=== PATIENT | female | born 1970 | race Caucasian/White ===

== ENCOUNTER → 2018-11-21 16:36 | Outpatient (CLI) | payer OTHER, SELFPAY ==
--- NOTE | 2018-11-21 | DI.RAD.S_ITS ---
PROCEDURE: XR LUMBAR SPINE MIN 4V INDICATIONS: Spondy lower lumbar TECHNIQUE: 5 views of the lumbar spine acquired. COMPARISON: None. FINDINGS: Bones: No fracture or focal osseous destruction. Mild levocurvature centered at L3. Grade 1 anterolisthesis of L4 on L5 Multilevel degenerative endplate sclerosis and spurring. Diffuse facet arthropathy. No evidence of abnormal motion with dynamic flexion and extension lateral views. Mild narrowing of the L4-L5 and L5-S1 disc spaces. Soft tissues: Overlying bowel gas pattern is normal. No suspicious soft tissue calcifications. IMPRESSION: Grade 1 anterolisthesis of L4 on L5. No evidence of abnormal motion with dynamic flexion and extension lateral views. Mild levocurvature. Mild L4-L5 and L5-S1 spondylosis. Dictated by: Chan Mcadams M.D. on 11/21/2018 at 17:15 Approved by: Chan Mcadams M.D. on 11/21/2018 at 17:16
== END ==
PROVIDERS: PCP Family Medicine; Visit Provider Chiropractor
DX: M43.16 Spondylolisthesis, lumbar region (principal); M47.816 Spondylosis without myelopathy or radiculopathy, lumbar region; M47.817 Spondylosis without myelopathy or radiculopathy, lumbosacral region
CPT/HCPCS: 72110

== ENCOUNTER → 2020-03-19 11:40 | Outpatient (CLI) | payer OTHER, SELFPAY ==
--- NOTE | 2020-03-19 | DI.MRI.S_ITS ---
PROCEDURE: MR LUMBAR SPINE WO CON INDICATIONS: Dorsalgia, unspecified TECHNIQUE: Noncontrast sagittal T1 spin echo and T2 fast echo, sagittal STIR, axial T1 and T2 fast spin echo through the lumbar spine. In cases with scoliosis, additional coronal T2 fast spin echo may be performed. COMPARISON: [facility], CR, XR LUMBAR SPINE MIN 4V, 11/21/2018, 16:48. FINDINGS: Image quality: Excellent. Alignment and Curvature: There is grade 1 anterolisthesis of L4 on L5, trace retrolisthesis of L3 on L4. Bone Marrow: Marrow is of normal overall signal. No acute vertebral body compression fractures. Spinal Cord: Conus medullaris terminates at the L1-L2 level. Visualized cord demonstrates normal signal and size. Paraspinous Soft Tissues: No paravertebral masses. Discs: Moderate to severe desiccation is present L4-5, L5-S1, mild to moderate throughout the remainder of the lumbar spine. L1-L2: Minimal disc bulge without spinal stenosis or foraminal narrowing. Mild epidural lipomatosis is present. Facet and ligamentum flavum hypertrophy are present. L2-L3: Minimal disc bulge without spinal stenosis. Minimal left foraminal narrowing. Mild epidural lipomatosis. L3-L4: Mild disc bulge with mild spinal stenosis. Minimal to mild right foraminal narrowing with facet and ligamentum flavum hypertrophy. Mild epidural lipomatosis. L4-L5: Mild disc bulge with severe spinal stenosis and canal compression. There is an anterior right facet joint cyst measuring 6 mm which is not in contact with the exiting nerve root. Severe bilateral, right greater than left foraminal narrowing with slight nerve root flattening of the exiting L4 nerve roots on the right. Prominent facet and ligamentum flavum hypertrophy are present. L5-S1: Mild disc bulge with increased T2 signal posteriorly suggestive of annular fissure. Minimal right foraminal narrowing with facet hypertrophy. IMPRESSION: 1. Multilevel spinal stenosis severe at L4-5 secondary to disc bulge with contributing effect of facet/ligamentum flavum arthropathy as well as epidural lipomatosis. 2. Multilevel foraminal narrowing most severe at L4-5 secondary to facet/ligamentum flavum arthropathy and anterolisthesis. Dictated by: Carolina Garcia M.D. on 03/21/2020 at 9:18 Approved by: Carolina Garcia M.D. on 03/21/2020 at 11:45
== END ==
PROVIDERS: PCP Family Medicine; Referring Provider Family Medicine; Visit Provider Family Medicine
DX: M54.9 Dorsalgia, unspecified (principal); M48.061 Spinal stenosis, lumbar region without neurogenic claudication; M47.816 Spondylosis without myelopathy or radiculopathy, lumbar region; M51.26 Other intervertebral disc displacement, lumbar region; M43.16 Spondylolisthesis, lumbar region; E88.2 Lipomatosis, not elsewhere classified
CPT/HCPCS: 72148

== ENCOUNTER → 2021-02-16 11:44 | Outpatient (CLI) | payer OTHER, SELFPAY | PROVIDERS: PCP Physician Assistant; Referring Provider Internal Medicine; Visit Provider Internal Medicine | DX: Z23 Encounter for immunization (principal) | CPT/HCPCS: 90471; 90686 ==

== ENCOUNTER → 2021-06-08 09:08 | Outpatient (CLI) | payer OTHER, SELFPAY ==
[2021-06-08 18:29] LABS: Add Manual Diff / Slide Review NO; Basophils Absolute Auto 0 /uL (0-100); Eosinophils Absolute Auto 200 /uL (0-450); Eosinophils Percent Auto 4.5 % (2-4); Hematocrit 41.1 % (36-46); Hemoglobin 14.2 g/dL (12.0-16.0); Lymphocytes Absolute Auto 2100 /uL (1100-4500); Lymphocytes Percent Auto 49.6 % (25-40); Mean Corpuscular HGB Conc 34.4 % (30-36); Mean Corpuscular Hemoglobin 32.6 PG (26-34); Mean Corpuscular Volume 94.7 fL (80-100); Monocytes Absolute Auto 300 /uL (0-900); Monocytes Percent Auto 6.4 % (3-14); Neutrophils Absolute Auto 1700 /uL (1500-7000); Neutrophils Percent Auto 38.5 % (50-75); Platelet Count 218 X10^3/uL (150-400); Red Blood Cell Count 4.34 X10^6/uL (4.0-5.2); Red Cell Distribution Width 13.2 % (11.6-14.8); White Blood Cell Count 4.3 X10^3/uL (4.5-11.0)
[2021-06-08 18:35] LABS: Alanine Aminotransferase 28 IU/L (<35); Albumin 4.6 g/dL (3.5-5.0); Albumin Globulin Ratio 1.4 (1.0-2.8); Alkaline Phosphatase 42 U/L (38-126); Aspartate Aminotransferase 34 IU/L (14-36); BUN Creatinine Ratio 12.1 (6-22); Bilirubin Total 0.5 mg/dL (0.2-1.3); Blood Urea Nitrogen 12 mg/dL (7-17); Calcium 9.5 mg/dL (8.4-10.2); Carbon Dioxide 27 mmol/L (22-32); Chloride 108 mmol/L (98-107); Cholesterol 280 mg/dL (140-199); Estimated Glomerular Filt Rate 59.4 mL/min (>60); Globulin 3.3 g/dL (1.7-4.1); Glucose 93 mg/dL (70-100); HDL Cholesterol 90 mg/dL (40-60); HEMOLYSIS < 15 (0-50); LDL Cholesterol Calculated 170 mg/dL (<100); Potassium 4.5 mmol/L (3.4-5.1); Sodium 140 mmol/L (137-145); Total Protein 7.9 g/dL (6.3-8.2); Triglycerides 102 mg/dL (35-150)
[2021-06-08 19:08] LABS: TSH w/ Reflex to FT4 2.34 uIU/mL (0.47-4.68)
[2021-06-08 20:30] LABS: Vitamin D 25 Hydroxy (D3) 39.9 ng/mL (30.0-100.0)
== END ==
PROVIDERS: Obstetrics & Gynecology; PCP Physician Assistant; Visit Provider Physician Assistant Medical
DX: D64.9 Anemia, unspecified (principal); E78.5 Hyperlipidemia, unspecified; R79.89 Other specified abnormal findings of blood chemistry; E55.9 Vitamin D deficiency, unspecified
CPT/HCPCS: 80053; 80061; 82306; 84443; 85025

== ENCOUNTER → 2022-02-05 17:08 | Outpatient (CLI) | payer OTHER, SELFPAY | PROVIDERS: PCP Physician Assistant; Referring Provider Internal Medicine; Visit Provider Internal Medicine | DX: Z23 Encounter for immunization (principal) | CPT/HCPCS: 90471; 90686 ==

== ENCOUNTER → 2022-03-30 07:45 | Outpatient (CLI) | payer OTHER, SELFPAY ==
--- NOTE | 2022-03-30 07:47 | DI.MG.S_ITS ---
BILATERAL DIGITAL SCREENING MAMMOGRAM 3D/2D WITH CAD: 03/30/2022 CLINICAL: Routine screening. Baseline exam. No prior exams were available for comparison. There are scattered areas of fibroglandular density in both breasts (category b / 25%-50% glandular tissue). Current study was also evaluated with a Computer Aided Detection (CAD) system. No significant masses, calcifications, or other findings are seen in either breast. IMPRESSION: NEGATIVE There is no mammographic evidence of malignancy. A 1 year screening mammogram is recommended. Based on the Tyrer Cuzick model (a risk assessment model) the patient's lifetime risk is 6.3% and her 10 year risk is 1.5%. According to the ACR, ACS, and NCCN guidelines, an annual breast MRI exam along with mammogram is recommended if the patient's lifetime risk is 20% or greater. This exam was interpreted at Station ID: [id number]. NOTE: For mammograms, a report in lay terms will be sent to the patient. Approximately 15% of breast malignancies will not be visualized mammographically. In the management of a palpable breast mass, a negative mammogram must not discourage biopsy of a clinically suspicious lesion. Electronically Signed By: Ewelina horta/mich:03/30/2022 13:11:09 letter sent: Normal Exam ACR BI-RADS Category 1: Negative [id number]
== END ==
PROVIDERS: PCP Physician Assistant; Referring Provider Physician Assistant; Visit Provider Physician Assistant
DX: Z12.31 Encounter for screening mammogram for malignant neoplasm of breast; Z13.820 Encounter for screening for osteoporosis; Z78.0 Asymptomatic menopausal state; M85.851 Other specified disorders of bone density and structure, right thigh; E55.9 Vitamin D deficiency, unspecified; M43.10 Spondylolisthesis, site unspecified
CPT/HCPCS: 77063; 77067; 77080

== ENCOUNTER → 2022-05-18 11:29 | Outpatient (CLI) | payer OTHER, SELFPAY | PROVIDERS: PCP Physician Assistant; Visit Provider Physician Assistant Medical | DX: N30.01 Acute cystitis with hematuria (principal); R11.10 Vomiting, unspecified | CPT/HCPCS: 87086 ==

== ENCOUNTER → 2022-05-21 08:26 | Outpatient (CLI) | payer OTHER, SELFPAY ==
[2022-05-21 19:17] LABS: Add Manual Diff / Slide Review NO; Basophils Absolute Auto 100 /uL (0-100); Basophils Percent Auto 1.2 % (0-2); Eosinophils Absolute Auto 200 /uL (0-450); Eosinophils Percent Auto 3.4 % (2-4); Hematocrit 41.2 % (36-46); Hemoglobin 14.2 g/dL (12.0-16.0); Lymphocytes Absolute Auto 2000 /uL (1100-4500); Lymphocytes Percent Auto 43.5 % (25-40); Mean Corpuscular HGB Conc 34.5 % (30-36); Mean Corpuscular Hemoglobin 33.1 PG (26-34); Mean Corpuscular Volume 95.9 fL (80-100); Monocytes Absolute Auto 400 /uL (0-900); Monocytes Percent Auto 7.7 % (3-14); Neutrophils Absolute Auto 2000 /uL (1500-7000); Neutrophils Percent Auto 44.2 % (50-75); Platelet Count 300 X10^3/uL (150-400); Red Blood Cell Count 4.29 X10^6/uL (4.0-5.2); Red Cell Distribution Width 13.1 % (11.6-14.8); White Blood Cell Count 4.6 X10^3/uL (4.5-11.0)
[2022-05-21 19:27] LABS: Alanine Aminotransferase 30 IU/L (<35); Albumin 4.2 g/dL (3.5-5.0); Albumin Globulin Ratio 1.4 (1.0-2.8); Alkaline Phosphatase 52 U/L (38-126); Aspartate Aminotransferase 33 IU/L (14-36); BUN Creatinine Ratio 10.8 (6-22); Bilirubin Total 0.2 mg/dL (0.2-1.3); Blood Urea Nitrogen 11 mg/dL (7-17); Calcium 9.5 mg/dL (8.4-10.2); Carbon Dioxide 27 mmol/L (22-32); Chloride 105 mmol/L (98-107); Cholesterol 250 mg/dL (140-199); Estimated Glomerular Filt Rate > 60 mL/min (>60); Globulin 3.1 g/dL (1.7-4.1); Glucose 102 mg/dL (70-100); HDL Cholesterol 71 mg/dL (40-60); HEMOLYSIS < 15 (0-50); LDL Cholesterol Calculated 145 mg/dL (<100); Potassium 4.6 mmol/L (3.4-5.1); Sodium 141 mmol/L (137-145); Total Protein 7.3 g/dL (6.3-8.2); Triglycerides 171 mg/dL (35-150)
[2022-05-21 19:49] LABS: Vitamin D 25 Hydroxy (D3) 62.7 ng/mL (30.0-100.0)
[2022-05-21 19:59] LABS: TSH w/ Reflex to FT4 3.55 uIU/mL (0.47-4.68)
== END ==
PROVIDERS: PCP Physician Assistant; Visit Provider Family Medicine
DX: D64.9 Anemia, unspecified (principal); E55.9 Vitamin D deficiency, unspecified; E78.5 Hyperlipidemia, unspecified; N30.01 Acute cystitis with hematuria; R11.10 Vomiting, unspecified
CPT/HCPCS: 80053; 80061; 82306; 84443; 85025

== ENCOUNTER → 2022-05-23 09:08 | Outpatient (CLI) | payer OTHER, SELFPAY ==
[2022-05-25 17:36] LABS: Fecal Immunochemical Test Negative (Negative)
== END ==
PROVIDERS: PCP Physician Assistant; Visit Provider Physician Assistant Medical
DX: D64.9 Anemia, unspecified (principal); E55.9 Vitamin D deficiency, unspecified; E78.5 Hyperlipidemia, unspecified; N30.01 Acute cystitis with hematuria; R11.10 Vomiting, unspecified
CPT/HCPCS: 82274

== ENCOUNTER → 2022-05-24 14:37 | Outpatient (CLI) | payer OTHER, SELFPAY ==
[2022-05-25 08:05] LABS: Amylase 77 U/L (30-110); Lipase 506 U/L (23-300)
[2022-05-25 08:11] LABS: Hemoglobin A1C% w Est Avg Glu 5.1 % (4.0-6.0)
[2022-05-25 08:35] LABS: TSH w/ Reflex to FT4 1.84 uIU/mL (0.47-4.68)
== END ==
PROVIDERS: PCP Physician Assistant; Visit Provider Physician Assistant Medical
DX: R11.2 Nausea with vomiting, unspecified (principal); R73.9 Hyperglycemia, unspecified
CPT/HCPCS: 82150; 83036; 83690; 84443

== ENCOUNTER → 2022-07-02 11:04 | Outpatient (CLI) | payer OTHER, SELFPAY ==
--- NOTE | 2022-07-02 11:05 | DI.MRI.S_ITS ---
PROCEDURE: MR LUMBAR SPINE WO CON INDICATIONS: Chronic low back pain, Spinal stenosis TECHNIQUE: Noncontrast sagittal T1 spin echo and T2 fast echo, sagittal STIR, and T2 fast spin echo through the lumbar spine. In cases with scoliosis, additional coronal T2 fast spin echo may be performed. COMPARISON: [facility], MR, MR LUMBAR SPINE WO CON, 03/19/2020, 11:49. FINDINGS: Image quality: Excellent. Alignment and Curvature: 8 mm anterolisthesis of L4 on L5, as before. Bone Marrow: Marrow is of normal overall signal. No acute vertebral body compression fractures. Spinal Cord: Conus medullaris terminates at the L1 level. Visualized cord demonstrates normal signal and size. Paraspinous Soft Tissues: No paravertebral masses. T12-L1: Normal appearance. L1-L2: Normal appearance. L2-L3: Minimal disc bulge. Mild facet hypertrophy. No canal stenosis or foraminal stenosis. L3-L4: Disc bulge. Facet hypertrophy. Epidural lipomatosis. Mild canal stenosis. No significant foraminal stenosis. L4-L5: Anterolisthesis of L4 on L5. Disc bulge. Prominent bilateral facet arthropathy. Epidural lipomatosis. High-grade canal stenosis. Zkza-dv-rojuesym bilateral foraminal narrowing. L5-S1: Posterior annulus tear. Disc bulge. Disc material abuts the bilateral S1 nerve roots in the lateral recesses. No central canal stenosis. Mild facet hypertrophy. No significant foraminal stenosis. IMPRESSION: 1. Findings at L4-L5 are similar to previous. There is prominent facet hypertrophy which results in anterolisthesis of L4 on L5. There is high-grade canal stenosis. There is fycj-si-trqormyn bilateral foraminal stenosis. 2. Mild canal stenosis at L3-L4. 3. Posterior annulus tear plus disc bulge at L5-S1. 4. Multilevel facet arthropathy. Dictated by: Dat Dennis M.D. on 07/02/2022 at 14:20 Approved by: Dat Dennis M.D. on 07/02/2022 at 16:09
== END ==
PROVIDERS: PCP Physician Assistant; Referring Provider Family Medicine; Visit Provider Family Medicine
DX: M48.061 Spinal stenosis, lumbar region without neurogenic claudication (principal); M43.16 Spondylolisthesis, lumbar region; M51.37 Other intervertebral disc degeneration, lumbosacral region; M47.816 Spondylosis without myelopathy or radiculopathy, lumbar region; M47.817 Spondylosis without myelopathy or radiculopathy, lumbosacral region; M54.9 Dorsalgia, unspecified; G89.29 Other chronic pain
CPT/HCPCS: 72148

== ENCOUNTER → 2022-08-30 09:59 | Outpatient (CLI) | payer OTHER, SELFPAY ==
[2022-08-30 20:06] LABS: Add Manual Diff / Slide Review NO; Basophils Absolute Auto 0 /uL (0-100); Basophils Percent Auto 0.6 % (0-2); Eosinophils Absolute Auto 200 /uL (0-450); Eosinophils Percent Auto 3.7 % (2-4); Hematocrit 40.4 % (36-46); Hemoglobin 13.9 g/dL (12.0-16.0); Lymphocytes Absolute Auto 2300 /uL (1100-4500); Lymphocytes Percent Auto 41.9 % (25-40); Mean Corpuscular HGB Conc 34.3 % (30-36); Mean Corpuscular Hemoglobin 32.8 PG (26-34); Mean Corpuscular Volume 95.5 fL (80-100); Monocytes Absolute Auto 400 /uL (0-900); Monocytes Percent Auto 6.9 % (3-14); Neutrophils Absolute Auto 2600 /uL (1500-7000); Neutrophils Percent Auto 46.9 % (50-75); Platelet Count 236 X10^3/uL (150-400); Red Blood Cell Count 4.23 X10^6/uL (4.0-5.2); Red Cell Distribution Width 13.1 % (11.6-14.8); White Blood Cell Count 5.6 X10^3/uL (4.5-11.0)
[2022-08-30 20:19] LABS: Alanine Aminotransferase 40 IU/L (<35); Albumin 4.2 g/dL (3.5-5.0); Albumin Globulin Ratio 1.5 (1.0-2.8); Alkaline Phosphatase 49 U/L (38-126); Aspartate Aminotransferase 36 IU/L (14-36); BUN Creatinine Ratio 16.7 (6-22); Bilirubin Total 0.4 mg/dL (0.2-1.3); Blood Urea Nitrogen 17 mg/dL (7-17); Calcium 9.5 mg/dL (8.4-10.2); Carbon Dioxide 22 mmol/L (22-32); Chloride 105 mmol/L (98-107); Estimated Glomerular Filt Rate > 60 mL/min (>60); Globulin 2.8 g/dL (1.7-4.1); Glucose 86 mg/dL (70-100); HEMOLYSIS < 15 (0-50); Potassium 4.4 mmol/L (3.4-5.1); Sodium 136 mmol/L (137-145)
[2022-08-30 20:53] LABS: Luteinizing Hormone 36.8 mIU/mL
[2022-09-05 23:01] LABS: Estrogen 99 pg/mL (.)
== END ==
PROVIDERS: PCP Physician Assistant; Visit Provider Physician Assistant
DX: N95.1 Menopausal and female climacteric states (principal); R23.2 Flushing
CPT/HCPCS: 80053; 82672; 83001; 83002; 85025

== ENCOUNTER → 2022-09-11 | Outpatient (CLI) | payer SELFPAY | LOC: RAD 10:38 | PROVIDERS: PCP Physician Assistant; Referring Provider Physician Assistant; Visit Provider Physician Assistant | DX: Z13.828 Encounter for screening for other musculoskeletal disorder (principal) ==

== ENCOUNTER → 2023-01-23 | Outpatient (CLI) | payer OTHER, SELFPAY | PROVIDERS: PCP Physician Assistant Medical; Referring Provider Family Medicine; Visit Provider Family Medicine | DX: Z23 Encounter for immunization (principal) | CPT/HCPCS: 90471; 90686 ==

== ENCOUNTER → 2023-05-23 10:24 | Outpatient (CLI) | payer OTHER, SELFPAY ==
[2023-05-23 21:45] LABS: Cholesterol 249 mg/dL (140-199); HDL Cholesterol 67 mg/dL (40-60); LDL Cholesterol Calculated 162 mg/dL (<100); Triglycerides 101 mg/dL (35-150)
[2023-05-23 21:54] LABS: Vitamin D 25 Hydroxy (D3) 45.7 ng/mL (30.0-100.0)
[2023-05-23 23:37] LABS: TSH w/ Reflex to FT4 1.42 uIU/mL (0.47-4.68)
[2023-06-01 09:06] LABS: Percent Free Testosterone 2.26 % (0.50-2.80); Testosterone Free 0.29 ng/dL (0.10-0.85)
== END ==
PROVIDERS: PCP Physician Assistant Medical; Visit Provider Nurse Practitioner Adult Health
DX: R63.5 Abnormal weight gain (principal)
CPT/HCPCS: 80061; 82306; 83036; 84270; 84402; 84403; 84443

== ENCOUNTER → 2023-07-04 06:53 | Outpatient (CLI) | payer OTHER, SELFPAY ==
--- NOTE | 2023-07-04 06:54 | DI.US.S_ITS ---
PROCEDURE: US PELVIC COMPLETE INDICATIONS: Post menopausal bleeding on HRT TECHNIQUE: Real-time scanning was performed of the pelvic organs, with image documentation. Additional endovaginal scanning was necessary due to incomplete visualization of the adnexal and endometrial structures by transabdominal scanning. COMPARISON: [facility], CR, XR PELVIS WITH LATERAL HIP LEFT, 04/29/2023, 13:45. FINDINGS: Uterus: Uterus is anteverted and normal in size at 7 x 5 x 3.6 cm. The myometrium is heterogeneous. The endometrium measures 12 mm combined thickness. Left anterior intramural fibroid measuring 1.2 x 0.9 x 0.8 cm. Ovaries: The right ovary measures 2.8 x 1.6 x 1.5 cm, with a calculated ovarian volume of 4 cc. The left ovary measures 2.6 x 1.7 x 1.5 cm, with a calculated ovarian volume of 4 cc. The ovaries have a normal sonographic appearance. Less than 12 follicles can be seen in each ovary. No adnexal masses are seen. Other: No pathologic free abdominal or pelvic fluid. IMPRESSION: 1. Endometrium measures 12 mm. Thickened in this postmenopausal patient with bleeding. Recommend endometrial biopsy if not yet performed. 2. A small intramural fibroid measuring 1.2 cm. 3. No significant ovarian cysts. We strive to produce accurate, complete, and clear reports of imaging services. To assist us in improving patient care, this report was composed using standard report templates and voice recognition software. Therefore, it may contain abnormal punctuation, insertions and/or omissions. Occasional wrong-word or sound-alike substitutions may occur. Though we review the report and make efforts to correct it, we do recommend that the report be read carefully in proper context to recognize any text inaccuracies. Dictated by: You Krause M.D. on 07/04/2023 at 9:22 Approved by: You Krause M.D. on 07/04/2023 at 9:26
== END ==
LOC: US 06:53
PROVIDERS: PCP Physician Assistant Medical; Referring Provider Nurse Practitioner Adult Health; Visit Provider Nurse Practitioner Adult Health
DX: N95.0 Postmenopausal bleeding (principal); D25.1 Intramural leiomyoma of uterus; R93.89 Abnormal findings on diagnostic imaging of other specified body structures
CPT/HCPCS: 76856

== ENCOUNTER 2023-10-14 06:43 | Day surgery (SDC) | payer OTHER, SELFPAY ==
[2023-10-09 14:41] VITALS: BMI 35.0
[2023-10-14] VITALS (7 sets, daily range): BP systolic 128–143; BP diastolic 79–90; PULSE 65–80; RESP 13–18; TEMP 36.2–36.6; O2SAT 92–99; BMI 35.0
--- NOTE | 2023-10-14 | PATH_ITS ---
[facility] Accession Number: [id number] No. of containers..01 Tissue . 01 Material submitted: . endometrium - ENDOMETRIAL CURETTINGS . 01 Diagnosis: A. ENDOMETRIUM, CURETTAGE: Predominantly blood with superficial strips of weakly proliferative endometrial glandular epithelium with evidence of shedding/breakdown and ciliated metaplasia. Negative for significant cytologic atypia and malignancy. See comment. . COMMENT: The specimen consists predominantly of strips of endometrial glandular epithelium without endometrial stroma to evaluate for hyperplasia. Areas of crowding likely represent artifactual crowding due to shedding/breakdown. In the specimen examined, there is no significant cytologic atypia or malignancy; however, the specimen is considered suboptimal for the evaluation for endometrial hyperplasia given the scant endometrial stroma. Clinical and radiographic correlation is necessary. [facility] 10/21/2023 1036 Local . 01 Electronically signed: . Beth Givens MD, Pathologist NPI- [id number] . 01 Gross description: . ENDOMETRIAL CURETTINGS: Received in formalin are minute fragments of mucoid and hemorrhagic material measuring 1.5 x 1.0 x 0.2 cm in aggregate. Submitted in toto in 1 cassette. /FELY 10/15/2023 0118 Local . 01 Microscopic: . Deeper step H/E sections are examined. . 01 Pathologist provided ICD-10: N93.9 . 01 CPT . 509133 Specimen Comment: A courtesy copy of this report has been sent to [facility]ology Performed at: [address] [address], [place], [place] [id number] MD Fernando Valenzuela MD Phone: [phone]
[2023-10-14] MEDS: LACTATED RINGERS 1,000 ML 21 ML IV (07:28)
--- NOTE | 2023-10-14 07:49 | P.HP_ITS ---
History of Present Illness History of Present Illness Date Patient Seen: 10/14/23 Time Patient Seen: 07:51 Chief complaint: Hysteroscopy D&C Narrative: 52yo postmenopausal female on HRT with recurrent AUB presents for scheduled definitive sampling with hysteroscopy, polypectomy with D&C REPLACED BY [facility] Medical History History of endometrial biopsy (07/05/23) Endometrial polyp Postmenopausal bleeding Unintended weight gain Asthma (~2014) Anxiety (~2020) Cervical spine disease (~2013) Chicken pox COVID Rosacea (~2002) Osteoporosis screening Other specified disorders of bone density and structure, multiple sites Post-menopausal Vaccine counseling Depression screen Encounter for hepatitis C screening test for low risk patient Breast cancer screening Colon cancer screening Preoperative examination LFT elevation Finger fracture, left Hand pain, left Surgical History (Updated 10/09/23 @ 14:48 by Etelvina Partida RN) History of lumbar spinal fusion (08/2022) History of total left hip replacement S/P tonsillectomy and adenoidectomy [place] teeth extracted Family History Father Diabetes mellitus Hyperlipidemia Mother Mental health problem Grandfather History of heart disease Grandmother Diabetes mellitus Social History household members: significant other Smoking Status: Former smoker alcohol intake: current Meds Home Medications and Allergies Home Medications Medication Instructions Recorded Confirmed Type fluticasone propionate 50 1 spray intranasal Q12H #16 grams 06/19/21 10/14/23 Rx mcg/actuation nasal spray,suspension albuterol sulfate 90 mcg/actuation 2 puff inhalation Q6H PRN 07/20/21 10/14/23 Rx aerosol inhaler shortness of breath or wheezing #8.5 grams estradiol 0.0375 mg/24 hr 1 patch transdermal 2XW #8 ea 10/25/22 10/14/23 Rx semiweekly transdermal patch fluticasone propionate 44 1 puff inhalation BID #10.6 grams 01/09/23 10/14/23 Rx mcg/actuation HFA aerosol inhaler (Flovent HFA) gabapentin 100 mg capsule See Rx Instructions PO TID #180 04/17/23 10/14/23 Rx caps cyclobenzaprine 10 mg tablet 10 mg PO TID PRN muscle spasm #90 05/06/23 10/14/23 Rx tabs topiramate 25 mg tablet See Rx Instructions PO DAILY #90 06/24/23 08/12/23 Rx tabs metronidazole 0.75 % topical gel 1 applic topical BID #45 grams 07/01/23 10/14/23 Rx tramadol 50 mg tablet 50 mg PO TID #84 tabs 07/01/23 08/12/23 Rx progesterone micronized 100 mg See Rx Instructions .Route 07/12/23 10/14/23 Rx capsule .COMPLEX #60 caps celecoxib 100 mg capsule 200 mg PO BID 07/17/23 10/14/23 History naloxone 4 mg/actuation nasal spray intranasal 07/17/23 08/12/23 History lorazepam 0.5 mg tablet 0.5 mg PO DAILY #20 tabs 08/14/23 10/14/23 Rx Allergies Allergy/AdvReac Type Severity Reaction Status Date / Time latex Allergy Intermediate Verified 10/14/23 07:13 amoxicillin Allergy Verified 10/14/23 07:13 Penicillins Allergy Verified 10/14/23 07:13 Exam Vital Signs (past 8 hours): - 10/14/23 07:23 Temperature 97.1 F L Pulse Rate 80 Respiratory Rate 17 Blood Pressure 133/84 Pulse Oximetry 97 Oxygen Delivery Method Room Air Oxygen Delivery Method Room Air Const General: cooperative, healthy appearing and comfortable Nutritional Appearance: average body habitus HENMT Face and sinus: dry mucous membranes Resp Effort & Inspection: normal respiratory effort Cardio Rate: regular rate GI Inspection: normal to inspection Palpation: soft Other: deferred Skin General: no rashes or lesions noted Neuro General: patient alert, patient awake and patient oriented x3 Extrem General: normal to inspection Psych Appearance: grossly normal Judgment: judgment good Assessment & Plan Assessment and plan (1) Abnormal uterine bleeding (AUB): Status: Acute Plan proceed to OR for scheduled procedure
--- NOTE | 2023-10-14 07:49 | PM.PREOP ---
Pre-operative Note Interval Note History & Physical reviewed/Exam performed by Physician: Yes Changes to H&P: No
--- NOTE | 2023-10-14 08:19 | SUR.OPER ---
Lithotomy on padded OR bed, head on pillow, arms secured on padded arm boards at <90 degrees abduction. Legs secured in padded yellow fins stirrups. Special care taken in leg positioning as patient reports left thigh nerve damage with left hip replacement.
[2023-10-14] MEDS: KETOROLAC 30 MG/ML VIAL IV (08:47)
[2023-10-14] MEDS: ACETAMINOPHEN 325 MG TABLET 650 MG PO (09:14)
--- NOTE | 2023-10-14 09:42 | PM.OP.1 ---
Operative Date/Time/Diagnoses Date of procedure: 10/14/23 Time of procedure: 07:50 Pre-op diagnosis: postmenopausal bleeding Post-op diagnosis: same Procedure & Clinicians Procedure: hysteroscopy, polypectomy, dilation and curettage Same procedure as scheduled: No (no evidence of endometrial polyp at time of procedure ) Indications: postmenopausal bleeding Surgeon: Stephanie Doll Click Yes if Unassisted: No Anesthesia Type: General Operative Notes Findings: normal external female genitalia, urethra and cervix visually wnl noted arcuate uterus without septation on hysteroscopy, no evidence of endometrial polyp bilateral ostia visualized Closure Type: not applicable Specimen(s): other (endometrial curettings ) Estimated Blood Loss (mL): 1 Blood products transfused: none Procedure in detail: Pt was taken to the operating room, transferred to OR table and anesthesia was induced with placement of ETT.? Pt had her legs placed in Yoav stirrups with extreme care taken secondary to known recent L femoral nerve injury. An exam under anesthesia was performed. The patient was prepped and draped in a sterile fashion.? A time out was performed. ?The bladder was emptied via straight catheter in sterile fashion.? A sterile speculum was inserted into the vagina.? The cervix was visualized and grasped anteriorly using a single tooth tenaculum.? The uterus sounded to 9 cm and the cervical os was serially dilated using Resendiz dilators up to 17f to allow for passage of the hysteroscope.? The 5mm 0 degree hysteroscope was then inserted into the uterus with findings as noted.? The hysteroscope was removed and the uterus was sharply curetted until a gritty texture was noted throughout.? The tenaculum was removed and hemostasis was noted at insertion sites.? The speculum was removed and hemostasis was again noted to be excellent.? The patient then had her legs taken out of stirrups.? The patient tolerated the procedure well and without difficulty.? The patient was awakened from anesthesia and taken to PACU in stable condition. Complications: none Post-operative Condition: stable Disposition: PACU
== END 2023-10-14 09:56 | disposition home or self-care (01) ==
PROVIDERS: PCP Physician Assistant Medical; Referring Provider Obstetrics & Gynecology; Visit Provider Obstetrics & Gynecology
PROC: 0UDB8ZZ Extraction of Endometrium, Via Natural or Artificial Opening Endoscopic (ICD-10-PCS; CPT 58558; principal; 2023-10-14 07:45)
DX: R93.89 Abnormal findings on diagnostic imaging of other specified body structures (principal)
CPT/HCPCS: 58558; J1100; J1885; J2250; J2405; J2704; J3010

== ENCOUNTER → 2024-02-03 16:03 | Outpatient (CLI) | payer OTHER, SELFPAY | PROVIDERS: Family Provider Physician Assistant Medical; PCP Physician Assistant Medical; Referring Provider Internal Medicine; Visit Provider Internal Medicine | DX: Z23 Encounter for immunization (principal) | CPT/HCPCS: 90471; 90656 ==

== ENCOUNTER → 2024-04-09 07:57 | Outpatient (CLI) | payer OTHER, SELFPAY | PROVIDERS: Family Provider Physician Assistant Medical; PCP Physician Assistant Medical; Referring Provider Physical Medicine & Rehabilitation; Visit Provider Physical Medicine & Rehabilitation | DX: G57.22 Lesion of femoral nerve, left lower limb (principal) | CPT/HCPCS: 95886; 95911 ==

== ENCOUNTER → 2024-04-29 11:37 | Outpatient (CLI) | payer OTHER, SELFPAY | PROVIDERS: Family Provider Physician Assistant Medical; PCP Physician Assistant Medical; Visit Provider Nurse Practitioner Adult Health | DX: R30.9 Painful micturition, unspecified (principal); R39.15 Urgency of urination | CPT/HCPCS: 87077; 87086; 87147 ==

== ENCOUNTER → 2024-05-20 07:58 | Outpatient (CLI) | payer OTHER, SELFPAY ==
--- NOTE | 2024-05-20 08:00 | DI.ECHO.S_ITS ---
[facility] : : [address] : : [place] : : [id number] : : Phone: [phone] Echocardiogram Report + + :Name: LINA HOWELL Study Date: 05/20/2024 Height: 64 in : :[facility] ReadingLocation: Weight: 210 lb : : Gender: Female BSA: 2.0 m2 : :: 1970 Age: 53 yrs BP: 140/97 mmHg: :Reason For Study: PALPITATIONS, SVT : :Ordering Physician: SONA, : :REBECCA Performed By: Caren Dowling : :Referring: REBECCA MAGALLANES : + + Interpretation Summary 1. Left ventricular contractility is normal. Estimate ejection fraction is greater than 60% with no segmental wall motion abnormalities. No LVH. Normal diastolic function. 2. The right ventricular contractility is normal. 3. All cardiac chambers are of normal size. 4. No significant valvular abnormalities. 5. No obvious intracardiac shunts. 6. No obvious intracardiac masses or thrombi. 7. No hemodynamically significant pericardial effusion. 8. Low right-sided filling pressures. Conclusion: Normal biventricular function with no significant valvular nor structural abnormalities. Procedure: A two-dimensional transthoracic echocardiogram with color flow and Doppler was performed. The study quality was technically adequate. There is no prior echocardiogram noted for this patient. The patient was in sinus rhythm with heart rates between 65-70 bpm during the exam. Left Ventricle: The left ventricle is normal in size and wall thickness. The ejection fraction is estimated to be 60-65%. Diastolic parameters suggest probable normal left ventricular diastolic function and normal filling pressures. Right Ventricle: The right ventricle is normal in size and function. Atria: The left atrial size is normal. Right atrial size is normal. There is no Doppler evidence for an interatrial shunt. Mitral Valve: The mitral valve leaflets appear to open well. There is trace mitral regurgitation. Aortic Valve: The aortic valve opens well. There is no aortic valve stenosis. No aortic regurgitation is present. Tricuspid Valve: The tricuspid valve leaflets are thin and pliable. There is trace tricuspid regurgitation. The right ventricular systolic pressure is estimated to be at least 18 mmHg based on an estimated right atrial pressure of 3 mm Hg. Pulmonic Valve: The pulmonic valve is not well seen, but is grossly normal. There is trace pulmonic regurgitation. Great Vessels: The aortic root is normal size. The dimensions of the ascending aorta are normal. The IVC is of normal diameter and collapses greater than 50% with a sniff. This suggests a low right atrial pressure of 3 mm Hg. Pericardium/ Pleura There is no pericardial effusion. There is no pleural effusion. MMode/2D Measurements & Calculations LVIDd: 4.4 cm LVOT diam: 2.0 cm LVIDs: 2.9 cm Ao root diam: 2.8 cm FS: 34.2 % asc Aorta Diam: 3.1 cm EPSS: 0.37 cm Ao Arch Diam (Prox Trans): 3.0 cm IVSd: 0.92 cm LVPWd: 0.71 cm LV gomez. diameter/BSA (cm/m^2): 2.2 LV sys. diameter/BSA (cm/m^2): 1.5 LA A2 area: 16.8 cm2 RA long axis: 4.1 cm LA A4 area: 12.7 cm2 RA area: 10.8 cm2 LA length (vol): 4.6 cm RA vol: 24.2 ml LA vol: 39.3 ml RA : 12.1 ml/m2 LA vol index: 19.7 ml/m2 IVC diam: 1.7 cm RVD1 (basal): 3.0 cm RVD2 (mid): 2.1 cm TAPSE: 1.9 cm Doppler Measurements & Calculations Ao V2 max: 150.6 cm/sec LVOT Max Hector: 95.3 cm/sec Ao V2 mean: 103.5 cm/sec LV V1 max P.6 mmHg Ao max P.1 mmHg LV V1 VTI: 22.5 cm Ao mean P.9 mmHg CAROLYNN(I,D): 2.1 cm2 Ao V2 VTI: 31.5 cm CAROLYNN(V,D): 1.9 cm2 sev ratio: 0.71 CAROLYNN indexed to BSA (cm^2/m^2): 1.1 MV E max hector: 72.3 cm/sec TR max hector: 196.5 cm/sec MV A max hector: 62.0 cm/sec TR max P.4 mmHg MV E/A: 1.2 PA V2 max: 125.7 cm/sec Med Peak E' Hector: 10.9 cm/sec PA V2 mean: 86.4 cm/sec E/E' med: 6.6 PA mean P.3 mmHg Lat Peak E' Hector: 12.4 cm/sec PA pr(Accel): 39.6 mmHg E/E' lat: 5.8 E/e' average: 6.2 MV dec time: 0.23 sec SV(LVOT): 67.7 ml Reading Physician:
== END ==
PROVIDERS: Family Provider Physician Assistant Medical; PCP Physician Assistant Medical; Referring Provider Family Medicine; Visit Provider Family Medicine
DX: I47.10 Supraventricular tachycardia, unspecified (principal)
CPT/HCPCS: 93306

== ENCOUNTER → 2024-07-27 11:03 | Outpatient (CLI) | payer OTHER, SELFPAY ==
[2024-07-27 18:43] LABS: Add Manual Diff / Slide Review NO; Basophils Absolute Auto 0 /uL (0-100); Basophils Percent Auto 0.8 % (0-2); Eosinophils Absolute Auto 300 /uL (0-450); Eosinophils Percent Auto 5.1 % (2-4); Hematocrit 43.6 % (36-46); Lymphocytes Absolute Auto 2300 /uL (1100-4500); Lymphocytes Percent Auto 40.7 % (25-40); Mean Corpuscular HGB Conc 34.5 % (30-36); Mean Corpuscular Hemoglobin 33.7 PG (26-34); Mean Corpuscular Volume 97.6 fL (80-100); Monocytes Absolute Auto 400 /uL (0-900); Monocytes Percent Auto 6.5 % (3-14); Neutrophils Absolute Auto 2600 /uL (1500-7000); Neutrophils Percent Auto 46.9 % (50-75); Platelet Count 235 X10^3/uL (150-400); Red Blood Cell Count 4.47 X10^6/uL (4.0-5.2); Red Cell Distribution Width 13.1 % (11.6-14.8); White Blood Cell Count 5.5 X10^3/uL (4.5-11.0)
[2024-07-27 19:16] LABS: Vitamin D 25 Hydroxy (D3) 51.8 ng/mL (30.0-100.0)
[2024-07-27 19:51] LABS: TSH w/ Reflex to FT4 2.23 uIU/mL (0.47-4.68)
[2024-07-27 20:10] LABS: Vitamin B12 360 pg/mL (239-931)
[2024-07-28 15:26] LABS: Alanine Aminotransferase 38 IU/L (<35); Alkaline Phosphatase 55 U/L (38-126); Aspartate Aminotransferase 40 IU/L (14-36); BUN Creatinine Ratio 12.7 (6-22); Bilirubin Total 0.7 mg/dL (0.2-1.3); Blood Urea Nitrogen 15 mg/dL (7-17); Calcium 10.5 mg/dL (8.4-10.2); Carbon Dioxide 21 mmol/L (22-32); Chloride 104 mmol/L (98-107); Estimated Glomerular Filt Rate 55 mL/min (>60); Glucose 106 mg/dL (70-100); HEMOLYSIS < 15 (0-50); Potassium 4.9 mmol/L (3.4-5.1); Sodium 137 mmol/L (137-145); Total Protein 7.7 g/dL (6.3-8.2)
[2024-07-28 15:27] LABS: Albumin 4.7 g/dL (3.5-5.0); Albumin Globulin Ratio 1.6 (1.0-2.8); Cholesterol 301 mg/dL (140-199); HDL Cholesterol 83 mg/dL (40-60); LDL Cholesterol Calculated 192 mg/dL (<100); Triglycerides 132 mg/dL (35-150)
[2024-07-29 07:09] LABS: Sex Hormone Binding Globulin 29.1 nmol/L (17.3-125.0)
[2024-07-30 19:39] LABS: Estrogen 149 pg/mL (.)
[2024-08-01 16:08] LABS: IgE Alternaria alternata <0.10 kU/L (Class 0); IgE Aspergillus fumigatus <0.10 kU/L (Class 0); IgE Aureobasidi pullulans <0.10 kU/L (Class 0); IgE Candida albicans <0.10 kU/L (Class 0); IgE Cladosporium herbarum <0.10 kU/L (Class 0); IgE Epicoccum purpur <0.10 kU/L (Class 0); IgE Fusarium proliferatum <0.10 kU/L (Class 0); IgE Mucor racemosus 1.64 kU/L (Class III); IgE Penicillium chrysogen <0.10 kU/L (Class 0); IgE Phoma betae <0.10 kU/L (Class 0); IgE Setomelanomma rostrat <0.10 kU/L (Class 0); IgE Stemphylium herbarum <0.10 kU/L (Class 0)
[2024-08-01 17:10] LABS: Alder IgE 1.05 kU/L (Class II); Almond IgE 1.11 kU/L (Class II); Alternaria alternata IgE <0.10 kU/L (Class 0); Aspergillus fumigatus IgE <0.10 kU/L (Class 0); Box Elder IgE 1.48 kU/L (Class III); Cashew Nut IgE 0.61 kU/L (Class II); Cat Dander IgE <0.10 kU/L (Class 0); Cladosporium herbarum IgE <0.10 kU/L (Class 0); Codfish Allergy IgE < 0.10 kU/L (Class 0); Cottonwood IgE 1.63 kU/L (Class III); D farinae IgE 0.29 kU/L (Class 0/I); D pteronyssinus IgE 0.29 kU/L (Class 0/I); Dog Dander IgE <0.10 kU/L (Class 0); Egg White IgE <0.10 kU/L (Class 0); Elm Tree IgE 2.09 kU/L (Class III); Hazelnut IgE 0.94 kU/L (Class II); Immunoglobulin E 58 IU/mL (6-495); Milk IgE <0.10 kU/L (Class 0); Mountain Cedar IgE 1.41 kU/L (Class III); Mouse Urine Proteins IgE <0.10 kU/L (Class 0); Nettle IgE 1.52 kU/L (Class III); Oak Tree IgE 4.04 kU/L (Class IV); Peanut IgE 4.54 kU/L (Class IV); Penicillium chrysogen IgE <0.10 kU/L (Class 0); Pigweed, Common IgE 1.99 kU/L (Class III); Ragweed, Short 3.41 kU/L (Class III); Salmon Allergy IgE < 0.10 kU/L (Class 0); Scallop Allergy IgE 0.75 kU/L (Class II); Sesame seed Allergy IgE 4.54 kU/L (Class IV); Sheep Sorrel IgE 3.55 kU/L (Class III); Shrimp IgE 0.12 kU/L (Class 0/I); Silver Birch IgE 1.11 kU/L (Class II); Soybean IgE 1.45 kU/L (Class III); Tuna Allergy IgE < 0.10 kU/L (Class 0); Walnut Allery IgE 1.86 kU/L (Class III); Walnut IgE 0.54 kU/L (Class I); Wheat Allergy IgE 3.86 kU/L (Class III); White ash IgE 1.81 kU/L (Class III)
[2024-08-08 22:06] LABS: Percent Free Testosterone 2.54 % (0.50-2.80); Testosterone Free 0.36 ng/dL (0.10-0.85); Testosterone Total 14.1 ng/dL (.)
== END ==
PROVIDERS: Family Provider Physician Assistant Medical; PCP Family Medicine; Visit Provider Physician Assistant Medical
DX: S84.92XA Injury of unspecified nerve at lower leg level, left leg, initial encounter (principal); F06.4 Anxiety disorder due to known physiological condition; E78.5 Hyperlipidemia, unspecified; J45.909 Unspecified asthma, uncomplicated; Z12.11 Encounter for screening for malignant neoplasm of colon; Z13.1 Encounter for screening for diabetes mellitus; Z13.29 Encounter for screening for other suspected endocrine disorder; R30.0 Dysuria; N95.0 Postmenopausal bleeding
CPT/HCPCS: 80053; 80061; 82306; 82607; 82672; 82785; 84270; 84402; 84403; 84443; 85025; 86003; 87086

== ENCOUNTER → 2024-08-11 11:01 | Outpatient (CLI) | payer OTHER, SELFPAY ==
--- NOTE | 2024-08-11 11:02 | DI.MG.S_ITS ---
MM screening mammo BI: 08/11/2024. BI-RADS: 1 CLINICAL: 53-year old female for bilateral screening mammogram. Tyrer-Cuzick lifetime risk of 5.9%. No personal or first-degree family history of breast cancer. PRIOR EXAMS 03/30/2022. MAMMOGRAPHY TECHNIQUE: 2D and 3D (tomosynthesis) digital mammographic views obtained, with additional images as needed for full coverage. Current study was also evaluated with a Computer Aided Detection (CAD) system. DENSITY B. There are scattered areas of fibroglandular density. MAMMOGRAPHY FINDINGS Bilateral: No suspicious mass, asymmetry, microcalcification, or other abnormality seen. No significant change from comparison. IMPRESSION: * No evidence of malignancy. RECOMMENDATIONS Bilateral * Annual screening mammography. OVERALL ASSESSMENT CATEGORY BI-RADS-1: Negative. The [employer] recommends annual screening mammography beginning at age 40 for women with average risk of breast cancer. ELECTRONICALLY SIGNED: Ewelina Yao M.D. on 08/11/2024 at 05:54:42 PM PT Interpreting Station ID: [id number]
== END ==
PROVIDERS: Family Provider Physician Assistant Medical; PCP Family Medicine; Referring Provider Family Medicine; Visit Provider Family Medicine
DX: Z12.31 Encounter for screening mammogram for malignant neoplasm of breast (principal)
CPT/HCPCS: 77063; 77067

== ENCOUNTER → 2024-08-28 11:45 | Outpatient (CLI) | payer OTHER, SELFPAY ==
--- NOTE | 2024-08-28 11:46 | DI.US.S_ITS ---
PROCEDURE: US ABDOMEN COMPLETE INDICATIONS: ABNORMAL LFTS/GFR/HEMATURIA. PRE/POSTVOID BLADDER. TECHNIQUE: Real-time scanning was performed of the abdominal and retroperitoneal organs, with image documentation. COMPARISON: None. FINDINGS: Liver: The liver demonstrates mildly increased size. The liver demonstrates generalized mildly increased echogenicity. This decreases ultrasound sensitivity for detection of hepatic masses. Within the left liver lobe, there is a hyperechoic nonshadowing nonvascular focus seen that measures up to 8 mm. Gallbladder: No findings of gallstones or sludge are seen. The gallbladder wall is not thickened, measuring 3 mm or less. No specific pericholecystic fluid is seen. The sonographic Hayden sign is negative. Biliary ducts: Intrahepatic bile ducts are non-dilated. Extrahepatic bile duct caliber measures 4-5 mm. Normal is 6-7 mm or less in diameter, or 10 mm or less post-cholecystectomy. Pancreas: Visualized portions of the pancreas are sonographically normal. Spleen: Spleen is normal in size and homogeneous in echotexture. Kidneys: The right kidney measures 8.7 x 4.8 x 4.3 cm. The left kidney measures 10.5 x 6.4 x 6.7 cm. Mild pelviectasis can be seen on the right-side, without elizabeth hydronephrosis. The right kidney is mildly heterogeneous, without a suspicious mass. Mild prominence of the left renal collecting system can be seen inferiorly. Aorta: Visualized aorta is normal in caliber at less than 3 cm. Iliacs: Proximal common iliac arteries are normal in caliber at less than 2.5 cm. IVC: Intrahepatic inferior vena cava is patent. Miscellaneous: No free abdominal fluid. The prevoid bladder volume is 99 cc. The postvoid bladder volume is 0 cc. Neither ureteral jet is well seen. IMPRESSION: Atrophic appearing right kidney. There is mild pelviectasis of the right kidney, without elizabeth hydronephrosis. Mild prominence of the left inferior renal collecting system can be seen. Mildly enlarged, mildly fatty liver. The gallbladder demonstrates a normal sonographic appearance. No biliary dilatation is seen. No postvoid residual. Additional findings: 8 mm left liver hemangioma Dictated by: Zachariah Ho M.D. on 08/28/2024 at 16:38 Approved by: Zachariah Ho M.D. on 08/28/2024 at 16:41
== END ==
LOC: US 11:45
PROVIDERS: Family Provider Physician Assistant Medical; PCP Family Medicine; Referring Provider Physician Assistant Medical; Visit Provider Physician Assistant Medical
DX: N30.01 Acute cystitis with hematuria (principal); N28.89 Other specified disorders of kidney and ureter; K76.0 Fatty (change of) liver, not elsewhere classified; R79.89 Other specified abnormal findings of blood chemistry; R94.4 Abnormal results of kidney function studies
CPT/HCPCS: 76700

== ENCOUNTER → 2024-09-24 09:31 | Outpatient (CLI) | payer OTHER, SELFPAY ==
[2024-09-24 19:53] LABS: Alanine Aminotransferase 29 IU/L (<35); Albumin 4.6 g/dL (3.5-5.0); Albumin Globulin Ratio 1.6 (1.0-2.8); Alkaline Phosphatase 55 U/L (38-126); Aspartate Aminotransferase 35 IU/L (14-36); Bilirubin Total 0.4 mg/dL (0.2-1.3); Blood Urea Nitrogen 16 mg/dL (7-17); Calcium 10.1 mg/dL (8.4-10.2); Carbon Dioxide 19 mmol/L (22-32); Chloride 107 mmol/L (98-107); Cholesterol 283 mg/dL (140-199); Estimated Glomerular Filt Rate > 60 mL/min (>60); Globulin 2.9 g/dL (1.7-4.1); Glucose 100 mg/dL (70-99); HDL Cholesterol 66 mg/dL (40-60); HEMOLYSIS 16 (0-50); LDL Cholesterol Calculated 187 mg/dL (<100); Potassium 4.7 mmol/L (3.4-5.1); Sodium 136 mmol/L (137-145); Total Protein 7.5 g/dL (6.3-8.2); Triglycerides 150 mg/dL (35-150); Uric Acid 6.4 mg/dL (2.5-6.2)
[2024-09-24 19:56] LABS: Creatinine Urine Random 133.28 mg/dL
[2024-09-24 20:02] LABS: Microalbumin Urine Random 1.9 mg/dL (0-1.6)
[2024-09-27 07:36] LABS: Calcium 10.1 mg/dL (8.7-10.2); Parathyroid Hormone, Intact 28 pg/mL (15-65)
== END ==
PROVIDERS: Family Provider Physician Assistant Medical; PCP Family Medicine; Visit Provider Physician Assistant Medical
DX: E78.00 Pure hypercholesterolemia, unspecified (principal); N30.01 Acute cystitis with hematuria; R94.4 Abnormal results of kidney function studies; E83.52 Hypercalcemia; R79.89 Other specified abnormal findings of blood chemistry
CPT/HCPCS: 80053; 80061; 82043; 82310; 82570; 83036; 83970; 84550

== ENCOUNTER 2024-10-08 13:24 | Outpatient (CLI) | payer OTHER, SELFPAY ==
[2024-10-08] VITALS (9 sets, daily range): BP systolic 117–144; BP diastolic 77–95; PULSE 79–87; RESP 16; TEMP 36.4; O2SAT 96–100
[2024-10-08] MEDS: MIDAZOLAM 2 MG/2 ML VIAL IV ×2 (14:47→14:54)
[2024-10-08] MEDS: iopamidoL 15 ML VIAL 3 ML INJ (14:52)
[2024-10-08] MEDS: BUPIVACAINE 0.25% (PF) VIAL 5 ML INJ (14:53)
[2024-10-08] MEDS: BETAMETHASONE 30 MG/5 ML MDV 12 MG INJ (14:55)
[2024-10-08] MEDS: DEXAMETHASONE 10 MG/ML VIAL 20 MG INJ (14:55)
[2024-10-08] MEDS: BETAMETHASONE 30 MG/5 ML MDV 6 MG INJ (14:56)
--- NOTE | 2024-10-08 15:10 | P.PCN_ITS ---
Date/Time/Diagnoses Date of procedure: 10/08/24 Time of procedure: 15:10 Pre-procedure diagnosis: 1. FORAMINAL STENOSIS WITH LE SYMPTOMS Post-procedure diagnosis: same Procedure Notes Procedure: 1. FLUOROSCOPICALLY GUIDED CONTRAST CONTROLLED TRANSFORAMINAL EPIDURAL STEROID INJECTION - LEFT L3/4 TFESI Indications: Julius is referred by Dr. Gomez for treatment of Foraminal Stenosis with left LE Symptoms Physician: Ab Gerardo Total Fluoroscopy time (seconds): 12 Total sedation minutes: 18 Complications: none Procedure in detail & Post-procedure care: FINDINGS Foraminal Nerve Root Compression secondary to disc disease and facet hypertrophy DESCRIPTION OF PROCEDURE Following review of allergy and review of potential side effects and complications, including, but not necessarily limited to, infection, allergic reaction, local tissue breakdown, stroke, temporary or permanent nerve injury, paralysis, and possible , the patient indicated that the patient understood and agreed to proceed. An informed consent document was signed by the patient, witnessed by a nurse, and placed in the patient's chart. Additionally, other treatment options including medications, modalities, and physical therapy were reviewed with the patient. After review of previous anaesthesic history and IV conscious sedation the patient was deemed safe to proceed with today?s procedure with IV conscious sedation as ASA class II designation. Safety time-out was performed to confirm patient ID, procedure to be performed and site of procedure. IV sedation was accomplished with a combination of 4mg of Versed was administered by the RN after DO order, titrated to patient comfort during the course of the procedure while the patient remained responsive to all verbal commands In the prone position following sterile prep and drape of the lumbar region, the left L3/4 posterior neuroforamen was identified fluoroscopically. The skin was anesthetized via a 25-gauge 1.5-inch needle with 1% lidocaine solution. At this point, a 25-gauge 3.5-inch spinal needle was atraumatically introduced and advanced under fluoroscopic guidance through the posterior left L3/4 neuroforamen to approximately the anterior aspect of the canal. Depth was confirmed on lateral view. Following negative aspiration, injection of approximately 1.5 cc of Isovue 200 under live fluoroscopy in the AP view confirm ed excellent flow along the nerve root, into the epidural space without vascular or intrathecal uptake observed Radiological data, including multiple fluoroscopic views of the lumbosacral spine, reveal a spinal needle at the left L3/4 posterior neuroforamen. Subsequent views show flow of contrast material flowing superiorly and inferiorly along the nerve root confirming epidural flow. Subsequently, a test dose of 1.5cc of 0.25% marcaine solution was administered and patient was observed for two minutes for signs or symptoms of complications, including abdominal pain, shortness of breath, bilateral upper or lower extremity weakness, nausea and vomiting, prior to steroid injection. At this point, a total of 3cc or 10mg of dexamethasone and 12mg betamethasone was injected without incident. The patient tolerated the procedure well without signs or symptoms of complications prior to transfer to the recovery area continued monitoring without incident. The patient was then transferred to the recovery area where they were observed for an appropriate time after the injection. The patient reported a VAS score of 7 prior to the procedure and a post-procedure VAS of 1. POST OP INSTRUCTIONS The patient was provided a Pain Log to continue to record their response to the target-specific procedure prior to follow-up visit with their referring physician. Additionally, specific post-injection care instructions and a contact number to our office were provided if concerns arise regarding possible complications associated with the procedure are suspected.
--- NOTE | 2024-10-08 15:12 | P.PCN_ITS ---
Date/Time/Diagnoses Date of procedure: 10/08/24 Time of procedure: 15:12 Pre-procedure diagnosis: 1. FORAMINAL STENOSIS WITH LE SYMPTOMS Post-procedure diagnosis: same Procedure Notes Procedure: 1. FLUOROSCOPICALLY GUIDED CONTRAST CONTROLLED TRANSFORAMINAL EPIDURAL STEROID INJECTION - LEFT L4/5 Indications: Julius is referred by Dr. Gomez for treatment of Foraminal Stenosis with Left LE Symptoms Physician: Ab Gerardo Total Fluoroscopy time (seconds): 12 Total sedation minutes: 18 Complications: none Procedure in detail & Post-procedure care: FINDINGS Foraminal Nerve Root Compression secondary to disc disease and facet hypertrophy DESCRIPTION OF PROCEDURE Following review of allergy and review of potential side effects and complications, including, but not necessarily limited to, infection, allergic reaction, local tissue breakdown, stroke, temporary or permanent nerve injury, paralysis, and possible , the patient indicated that the patient understood and agreed to proceed. An informed consent document was signed by the patient, witnessed by a nurse, and placed in the patient's chart. Additionally, other treatment options including medications, modalities, and physical therapy were reviewed with the patient. After review of previous anaesthesic history and IV conscious sedation the patient was deemed safe to proceed with today?s procedure with IV conscious sedation as ASA class II designation. Safety time-out was performed to confirm patient ID, procedure to be performed and site of procedure. IV sedation was accomplished with a combination of 4mg of Versed administered by the RN after DO order, titrated to patient comfort during the course of the procedure while the patient remained responsive to all verbal commands In the prone position following sterile prep and drape of the lumbar region, the left L4/5 posterior neuroforamen was identified fluoroscopically. The skin was anesthetized via a 25-gauge 1.5-inch needle with 1% lidocaine solution. At this point, a 25-gauge 3.5-inch spinal needle was atraumatically introduced and advanced under fluoroscopic guidance through the posterior left L4/5 neuroforamen to approximately the anterior aspect of the canal. Depth was confirmed on lateral view. Following negative aspiration, injection of approximately 1.5 cc of Isovue 200 under live fluoroscopy in the AP view confirmed excellent flow along the nerve root, into the epidural space without vascular or intrathecal uptake observed Radiological data, including multiple fluoroscopic views of the lumbosacral spine, reveal a spinal needle at the left L4/5 posterior neuroforamen. Subsequent views show flow of contrast material flowing superiorly and inferiorly along the nerve root confirming epidural flow. Subsequently, a test dose of 1.5cc of 0.25% marcaine solution was administered and patient was observed for two minutes for signs or symptoms of complications, including abdominal pain, shortness of breath, bilateral upper or lower extremity weakness, nausea and vomiting, prior to steroid injection. At this point, a total of 3cc or 10mg of dexamethasone and 12mg of betamethasone was injected without incident. The procedure tolerated the procedure well without signs or symptoms of complications prior to transfer to the recovery area continued monitoring without incident. The patient was then transferred to the recovery area where they were observed for an appropriate time after the injection. The patient reported a VAS score of 7 prior to the procedure and a post- procedure VAS of 0. POST OP INSTRUCTIONS The patient was provided a Pain Log to continue to record their response to the target-specific procedure prior to follow-up visit with their referring physician. Additionally, specific post-injection care instructions and a contact number to our office were provided if concerns arise regarding possible complications associated with the procedure are suspected.
== END 2024-10-08 15:18 | disposition home or self-care (01) ==
PROVIDERS: Family Provider Physician Assistant Medical; PCP Family Medicine; Referring Provider Physical Medicine & Rehabilitation; Visit Provider Physical Medicine & Rehabilitation
DX: M48.061 Spinal stenosis, lumbar region without neurogenic claudication (principal); M51.16 Intervertebral disc disorders with radiculopathy, lumbar region; M47.26 Other spondylosis with radiculopathy, lumbar region
CPT/HCPCS: 64483; 64484; 99152; J0702; J1100; J2250

== ENCOUNTER → 2025-01-28 13:34 | Outpatient (CLI) | payer OTHER, SELFPAY | LOC: PHYS 13:35 | PROVIDERS: Family Provider Physician Assistant Medical; PCP Family Medicine; Referring Provider Physical Medicine & Rehabilitation; Visit Provider Physical Medicine & Rehabilitation | DX: M43.26 Fusion of spine, lumbar region (principal); Z96.642 Presence of left artificial hip joint; G57.10 Meralgia paresthetica, unspecified lower limb | CPT/HCPCS: 95886; 95907 ==